=== PATIENT | male | born 1965 | race Caucasian/White ===

== ENCOUNTER 2016-08-04 23:06 | Inpatient (IN) | payer MEDICAID ==
[~2016-08-04] VITALS: Ht 180.3 cm; Wt 90.0 kg
[2016-08-05 00:02] LABS: DEFINITIVE VIEW TRANSMISSION; Hematocrit 38.4 % (41.0-53.0); Hemoglobin 13.3 g/dL (13.5-17.5); Mean Corpuscular Hemoglobin 31.4 pg (28.0-32.0); Mean Corpuscular Hgb Conc. 34.6 g/dL (32.0-36.0); Mean Corpuscular Volume 90.8 fL (80.0-100.0); Platelet Count (auto) 428 10^3/uL (140-450); Red Cell Distribution Width 13.2 % (11.6-16.0); SUSPECT VIEW TRANSMISSION
[2016-08-05 00:18] LABS: White Blood Cell 33.4 10^3/uL (4.4-10.8)
[2016-08-05 00:19] LABS: Metamyelocytes % 0; Myelocytes % 0; Promyelocytes % 0; Reactive Lymphocytes 0
[2016-08-05 00:21] LABS: Albumin 1.9 g/dL (3.4-5.0); BUN/Creatinine Ratio 15.4; Calcium 8.2 mg/dL (8.5-10.1)
[2016-08-05 00:24] LABS: Bilirubin, Total 1.6 mg/dL (0.2-1.0); Total Protein 6.9 g/dL (6.4-8.2)
[2016-08-05 00:38] LABS: Potassium 2.7 mmol/L (3.5-5.1)
[2016-08-05] MEDS ORDERED: POTASSIUM CHL 20 Meq TABLET PO ONE (00:45)
[2016-08-05 01:11] LABS: Platelet Estimate Adequate; RBC Morphology Normal
[2016-08-05] MEDS ORDERED: KETOROLAC TROMETH 30 MG/ML 1ML VIAL IV ONE (01:15)
[2016-08-05] MEDS ORDERED: CLINDAMYCIN 900MG IV 50 ML IV ONE (01:15)
[2016-08-05 01:18] LABS: Lactic Acid w/Reflex 3.2 mmol/L (0.4-2.0)
[2016-08-05 01:20] LABS: REFLEX LACTIC ACID YES OR NO YES
[2016-08-05 02:37] LABS: Lactic Acid w/Reflex 2.6 mmol/L (0.4-2.0)
[2016-08-05] MEDS ORDERED: SODIUM CHLORIDE 0.9% 1,000 ML IV ONE ×2 (03:00→14:15)
[2016-08-05] MEDS ORDERED: VANCOMYCIN 1GM/250ML D5W 250 ML IV ONE (03:00)
[2016-08-05 03:04] LABS: REFLEX LACTIC ACID YES OR NO YES
[2016-08-05] MEDS ORDERED: MORPHINE SULF INJ 2 MG/ML SYRINGE 1ML IV PRN (04:15)
[2016-08-05] MEDS ORDERED: ONDANSETRON HCL 4 MG/2 ML VIAL IV PRN (04:15)
[2016-08-05] MEDS: SODIUM CHLORIDE 0.9% 1,000 ML IV SCH ×3 (04:30→15:00)
[2016-08-05 04:46] LABS: Lactic Acid w/Reflex 2.4 mmol/L (0.4-2.0)
[2016-08-05 05:21] LABS: REFLEX LACTIC ACID YES OR NO YES
[2016-08-05 05:44] VITALS: BP 117/64
[2016-08-05 08:00] VITALS: BP 109/62
[2016-08-05 08:57] VITALS: BP 109/62
[2016-08-05] MEDS ORDERED: CLINDAMYCIN 900MG IV 50 ML IV SCH (10:00)
[2016-08-05 12:30] VITALS: BP 105/63
[2016-08-05] MEDS: CLINDAMYCIN 900MG IV 50 ML IV SCH ×2 (13:20→22:15)
[2016-08-05 14:32] LABS: Hematocrit 34.6 % (41.0-53.0); Hemoglobin 11.8 g/dL (13.5-17.5); Mean Corpuscular Hemoglobin 30.9 pg (28.0-32.0); Mean Corpuscular Hgb Conc. 34.1 g/dL (32.0-36.0); Mean Corpuscular Volume 90.8 fL (80.0-100.0); Mean Platelet Volume 6.7 fL (7.4-10.4); Platelet Count (auto) 393 10^3/uL (140-450); Red Cell Distribution Width 13.5 % (11.6-16.0); SUSPECT VIEW TRANSMISSION; White Blood Cell 25.9 10^3/uL (4.4-10.8)
[2016-08-05 14:38] LABS: Metamyelocytes % 0; Myelocytes % 0; Promyelocytes % 0; Reactive Lymphocytes 0
[2016-08-05 14:50] LABS: Partial Thromboplastin Time 30.7 sec (22.64-33.71)
[2016-08-05 14:54] LABS: BUN/Creatinine Ratio 14.6; Calcium 7.9 mg/dL (8.5-10.1); Magnesium 1.9 mg/dL (1.6-2.6); Potassium 3.1 mmol/L (3.5-5.1)
[2016-08-05 15:14] LABS: INR 1.28 (0.9-1.15); Prothrombin Time 13.2 sec (9.37-12.3)
[2016-08-05 15:31] LABS: Platelet Estimate Adequate
[2016-08-05] MEDS: PANTOPRAZOLE 40 MG TAB PO SCH (15:53)
[2016-08-05 17:05] VITALS: BP 131/73
[2016-08-05 22:00] VITALS: BP 136/91
[2016-08-06] MEDS ORDERED: NEOMYCIN-BACITRACIN-POLYM UNITDOSE PKG TOP OINT TOP ONE (02:29)
[2016-08-06 05:00] VITALS: BP 137/83
[2016-08-06 06:00] LABS: Hematocrit 35.5 % (41.0-53.0); Hemoglobin 12.1 g/dL (13.5-17.5); Mean Corpuscular Hemoglobin 30.8 pg (28.0-32.0); Mean Corpuscular Hgb Conc. 34.1 g/dL (32.0-36.0); Mean Corpuscular Volume 90.3 fL (80.0-100.0); Mean Platelet Volume 6.9 fL (7.4-10.4); Platelet Count (auto) 422 10^3/uL (140-450); Red Cell Distribution Width 13.6 % (11.6-16.0); SUSPECT VIEW TRANSMISSION
[2016-08-06] MEDS: CLINDAMYCIN 900MG IV 50 ML IV SCH ×2 (06:04→13:57)
[2016-08-06 06:10] LABS: Metamyelocytes % 0; Myelocytes % 0; Promyelocytes % 0; Reactive Lymphocytes 0
[2016-08-06 06:45] LABS: BUN/Creatinine Ratio 15.5; Magnesium 2.2 mg/dL (1.6-2.6); Potassium 3.2 mmol/L (3.5-5.1)
[2016-08-06 06:58] LABS: Platelet Estimate Adequate; RBC Morphology Normal
[2016-08-06] MEDS: SODIUM CHLORIDE 0.9% 1,000 ML IV SCH ×2 (07:40→14:45)
[2016-08-06 09:00] VITALS: BP 122/73
[2016-08-06] MEDS: PANTOPRAZOLE 40 MG TAB PO SCH (10:26)
[2016-08-06] MEDS: HYDROcodone-ACET 5/325MG TAB PO PRN ×2 (10:33→17:49)
[2016-08-06] MEDS ORDERED: SODIUM CHLORIDE 0.9% 1,000 ML IV ONE (13:45)
[2016-08-06] MEDS ORDERED: VANCOMYCIN 1GM/250ML D5W 250 ML IV ONE (14:15)
[2016-08-06] MEDS ORDERED: VANCOMYCIN PER PHARMACY 0 MG IV SCH (14:15)
[2016-08-06] MEDS ORDERED: POTASSIUM CHL 20 Meq TABLET PO ONE (14:15)
[2016-08-06] MEDS ORDERED: PHYTONADIONE ORAL Susp 10 mg/10ml PO ONE (14:15)
[2016-08-06] MEDS ORDERED: PIPERACILLIN-TAZOB 3.375GM 100 ML IV ONE (15:15)
[2016-08-06 16:31] LABS: Partial Thromboplastin Time 30.1 sec (22.64-33.71)
[2016-08-06 16:56] VITALS: BP 117/79
[2016-08-06 17:02] LABS: INR 1.23 (0.9-1.15); Prothrombin Time 12.7 sec (9.37-12.3)
[2016-08-06] MEDS: PIPERACILLIN-TAZOB 3.375GM 100 ML IV SCH (17:49)
[2016-08-06] MEDS ORDERED: NEOMYCIN-BACITRACIN-POLYM 15GM TOP OINT TOP ONE (20:24)
[2016-08-06] MEDS ORDERED: BUPIVACAINE W/ EPINEPH 0.25% INJ 50ML MDV ONE (20:24)
[2016-08-06] MEDS ORDERED: BUPIVACAINE 0.25% INJ 50ML VIAL ONE (20:24)
[2016-08-06] MEDS ORDERED: ceFAZolin 1GM/50ML D5W 50 ML IV ONE (20:29)
[2016-08-06] MEDS ORDERED: KETOROLAC TROMETH 30 MG/ML 1ML VIAL IV ONE (20:30)
[2016-08-06] MEDS ORDERED: ONDANSETRON HCL 4 MG/2 ML VIAL IV ONE (20:30)
[2016-08-06] MEDS ORDERED: ePHEDrine SULFATE 50 MG/ML AMP IV PRN (20:30)
[2016-08-06] MEDS ORDERED: MIDAZOLAM HCL 1MG/1ML-2 ML VIAL IV PRN (20:30)
[2016-08-06] MEDS ORDERED: MORPHINE SULF INJ 2 MG/ML SYRINGE 1ML IV PRN (20:30)
[2016-08-06] MEDS ORDERED: hydrALAZINE HCL 20 MG/ML VL IV PRN (20:30)
[2016-08-06] MEDS ORDERED: LABETALOL HCL 5 MG/ML 4ML SYRINGE IV PRN (20:30)
[2016-08-06] MEDS ORDERED: HYDROmorphone HCL 2 MG/ML VL IV PRN (20:30)
[2016-08-06] MEDS ORDERED: MEPERIDINE HCL (50 MG/ML) 1 ML VIAL ONE (20:31)
[2016-08-06] MEDS ORDERED: MIDAZOLAM HCL 1MG/1ML-2 ML VIAL ONE (20:31)
[2016-08-06] MEDS ORDERED: fentaNYL CITRATE 100 MCG/2 ML VL ONE (20:31)
[2016-08-06] MEDS ORDERED: PROPOFOL 10 MG/ML 20 ML IV ONE (20:47)
[2016-08-06] MEDS ORDERED: DEXAMETHASONE SOD PHOS 10MG/1ML VIAL INJ ONE (20:47)
[2016-08-06 22:00] VITALS: BP 127/81
[2016-08-07] MEDS: PIPERACILLIN-TAZOB 3.375GM 100 ML IV SCH ×4 (00:11→18:16)
[2016-08-07] MEDS: SODIUM CHLORIDE 0.9% 1,000 ML IV SCH ×3 (00:11→20:43)
[2016-08-07] MEDS: HYDROmorphone HCL 2 MG/ML VL IV PRN ×3 (01:13→16:33)
[2016-08-07] MEDS: VANCOMYCIN 1,250 MG in D5W 5% 250 ML IV SCH ×2 (02:24→14:29)
[2016-08-07 05:36] VITALS: BP 112/76
[2016-08-07 06:26] LABS: Hematocrit 31.9 % (41.0-53.0); Hemoglobin 10.9 g/dL (13.5-17.5); Mean Corpuscular Hemoglobin 30.7 pg (28.0-32.0); Mean Corpuscular Hgb Conc. 34.3 g/dL (32.0-36.0); Mean Corpuscular Volume 89.5 fL (80.0-100.0); Mean Platelet Volume 6.9 fL (7.4-10.4); Platelet Count (auto) 399 10^3/uL (140-450); Red Cell Distribution Width 13.6 % (11.6-16.0); SUSPECT VIEW TRANSMISSION; White Blood Cell 22.9 10^3/uL (4.4-10.8)
[2016-08-07 06:32] LABS: Metamyelocytes % 0; Myelocytes % 0; Promyelocytes % 0; Reactive Lymphocytes 0
[2016-08-07 06:41] LABS: Partial Thromboplastin Time 30.1 sec (22.64-33.71); Prothrombin Time 11.9 sec (9.37-12.3)
[2016-08-07 06:48] LABS: BUN/Creatinine Ratio 16.3; Calcium 7.4 mg/dL (8.5-10.1); Magnesium 2.4 mg/dL (1.6-2.6); Potassium 3.9 mmol/L (3.5-5.1)
[2016-08-07 06:52] LABS: INR 1.16 (0.9-1.15)
[2016-08-07 06:57] LABS: Hypersegmented Neutrophils Present
[2016-08-07 06:58] LABS: Platelet Estimate Adequate; RBC Morphology Normal
[2016-08-07 09:00] VITALS: BP 120/74
[2016-08-07] MEDS: HYDROcodone-ACET 5/325MG TAB PO PRN ×3 (09:08→21:02)
[2016-08-07] MEDS: PANTOPRAZOLE 40 MG TAB PO SCH (10:05)
[2016-08-07 13:27] VITALS: BP 123/85
[2016-08-07 17:00] VITALS: BP 145/86
[2016-08-07 22:31] VITALS: BP 147/86
[2016-08-08] MEDS: PIPERACILLIN-TAZOB 3.375GM 100 ML IV SCH ×5 (00:09→23:49)
[2016-08-08] MEDS: HYDROmorphone HCL 2 MG/ML VL IV PRN ×5 (01:07→23:49)
[2016-08-08] MEDS: VANCOMYCIN 1,250 MG in D5W 5% 250 ML IV SCH ×2 (01:42→14:13)
[2016-08-08] MEDS: HYDROcodone-ACET 5/325MG TAB PO PRN ×4 (04:14→20:38)
[2016-08-08 05:17] VITALS: BP 160/94
[2016-08-08] MEDS: SODIUM CHLORIDE 0.9% 1,000 ML IV SCH ×2 (06:11→16:45)
[2016-08-08 08:10] LABS: Calcium 7.3 mg/dL (8.5-10.1); Potassium 3.1 mmol/L (3.5-5.1)
[2016-08-08 08:14] LABS: Hematocrit 27.9 % (41.0-53.0); Hemoglobin 9.6 g/dL (13.5-17.5); Mean Corpuscular Hemoglobin 30.8 pg (28.0-32.0); Mean Corpuscular Hgb Conc. 34.4 g/dL (32.0-36.0); Mean Corpuscular Volume 89.6 fL (80.0-100.0); Mean Platelet Volume 7.2 fL (7.4-10.4); Platelet Count (auto) 432 10^3/uL (140-450); Red Cell Distribution Width 13.6 % (11.6-16.0); SUSPECT VIEW TRANSMISSION
[2016-08-08 08:41] LABS: Metamyelocytes % 0; Myelocytes % 0; Promyelocytes % 0; Reactive Lymphocytes 0
[2016-08-08 09:00] VITALS: BP 154/96
[2016-08-08 09:14] LABS: Platelet Estimate Adequate
[2016-08-08] MEDS: PANTOPRAZOLE 40 MG TAB PO SCH (10:55)
[2016-08-08 13:00] VITALS: BP 157/98
[2016-08-08] MEDS: POTASSIUM CHL 20 Meq TABLET PO SCH ×2 (14:14→18:18)
[2016-08-08] MEDS ORDERED: NICOTINE 14 MG/24HR TOPICAL PATCH TD ONE (16:45)
[2016-08-08 17:00] VITALS: BP 154/95
[2016-08-08 21:55] VITALS: BP 150/97
[2016-08-09] VITALS (7 sets, daily range): BP systolic 122–153; BP diastolic 68–93
[2016-08-09] MEDS: VANCOMYCIN 1,250 MG in D5W 5% 250 ML IV SCH ×2 (02:00→16:42)
[2016-08-09] MEDS: HYDROcodone-ACET 5/325MG TAB PO PRN ×2 (02:40→09:19)
[2016-08-09] MEDS: SODIUM CHLORIDE 0.9% 1,000 ML IV SCH ×3 (02:41→22:45)
[2016-08-09] MEDS: HYDROmorphone HCL 2 MG/ML VL IV PRN ×6 (05:32→23:40)
[2016-08-09] MEDS: PIPERACILLIN-TAZOB 3.375GM 100 ML IV SCH ×3 (05:32→23:42)
[2016-08-09 07:34] LABS: Hematocrit 30.9 % (41.0-53.0); Hemoglobin 10.7 g/dL (13.5-17.5); Mean Corpuscular Hemoglobin 30.9 pg (28.0-32.0); Mean Corpuscular Hgb Conc. 34.6 g/dL (32.0-36.0); Mean Corpuscular Volume 89.2 fL (80.0-100.0); Mean Platelet Volume 6.8 fL (7.4-10.4); Platelet Count (auto) 523 10^3/uL (140-450); Red Cell Distribution Width 13.7 % (11.6-16.0); SUSPECT VIEW TRANSMISSION; White Blood Cell 22.6 10^3/uL (4.4-10.8)
[2016-08-09 07:41] LABS: Promyelocytes % 0; Reactive Lymphocytes 0
[2016-08-09 07:52] LABS: BUN/Creatinine Ratio 16.5; Calcium 7.6 mg/dL (8.5-10.1); Potassium 4.3 mmol/L (3.5-5.1)
[2016-08-09 08:12] LABS: Metamyelocytes % 3; Myelocytes % 1
[2016-08-09 08:14] LABS: Platelet Estimate Increased
[2016-08-09] MEDS: NICOTINE 14 MG/24HR TOPICAL PATCH TD SCH (10:49)
[2016-08-09] MEDS: PANTOPRAZOLE 40 MG TAB PO SCH (10:49)
[2016-08-09] MEDS ORDERED: ceFAZolin 1GM/50ML D5W 50 ML IV ONE (12:53)
[2016-08-09] MEDS ORDERED: ceFAZolin 1GM VL ONE ×2 (12:54→13:08)
[2016-08-09] MEDS ORDERED: fentaNYL CITRATE 100 MCG/2 ML VL ONE (13:11)
[2016-08-09] MEDS ORDERED: PROPOFOL 10 MG/ML 20 ML IV ONE (13:11)
[2016-08-09] MEDS ORDERED: DEXAMETHASONE SOD PHOS 10MG/1ML VIAL INJ ONE (13:11)
[2016-08-09] MEDS ORDERED: GLYCOPYRROLATE 0.2 MG/ML 1ML VIAL ONE (13:11)
[2016-08-09] MEDS ORDERED: ONDANSETRON HCL 4 MG/2 ML VIAL ONE (13:11)
[2016-08-09] MEDS ORDERED: KETOROLAC TROMETH 60MG/2ML VIAL IM ONE (13:11)
[2016-08-09] MEDS ORDERED: MIDAZOLAM HCL 1MG/1ML-2 ML VIAL ONE (13:17)
[2016-08-09] MEDS ORDERED: NEOMYCIN-BACITRACIN-POLYM 15GM TOP OINT TOP ONE ×3 (13:51→14:20)
[2016-08-09] MEDS ORDERED: ONDANSETRON HCL 4 MG/2 ML VIAL IV ONE (14:45)
[2016-08-09] MEDS ORDERED: ceFOXitin 2GM/100ML D5W 100 ML IV ONE (16:13)
[2016-08-09] MEDS ORDERED: ceFAZolin 1GM/50ML D5W 50 ML IV SCH (18:00)
[2016-08-09] MEDS: ceFAZolin 1GM/50ML D5W 50 ML IV SCH (19:28)
[2016-08-10] MEDS: ceFAZolin 1GM/50ML D5W 50 ML IV SCH (02:50)
[2016-08-10] MEDS: VANCOMYCIN 1,250 MG in D5W 5% 250 ML IV SCH (02:50)
[2016-08-10 05:30] VITALS: BP 112/69
[2016-08-10] MEDS: HYDROmorphone HCL 2 MG/ML VL IV PRN ×4 (06:02→21:57)
[2016-08-10] MEDS: PIPERACILLIN-TAZOB 3.375GM 100 ML IV SCH ×4 (06:02→23:51)
[2016-08-10 08:20] VITALS: BP 115/71
[2016-08-10 08:44] LABS: DEFINITIVE VIEW TRANSMISSION; Hematocrit 22.1 % (41.0-53.0); Hemoglobin 7.8 g/dL (13.5-17.5); Mean Corpuscular Hgb Conc. 35.2 g/dL (32.0-36.0); Mean Corpuscular Volume 90.9 fL (80.0-100.0); Mean Platelet Volume 6.7 fL (7.4-10.4); Platelet Count (auto) 499 10^3/uL (140-450); Red Cell Distribution Width 13.9 % (11.6-16.0); SUSPECT VIEW TRANSMISSION
[2016-08-10 08:50] LABS: BUN/Creatinine Ratio 20.6; Calcium 7.4 mg/dL (8.5-10.1); Magnesium 2.7 mg/dL (1.6-2.6); Potassium 4.2 mmol/L (3.5-5.1)
[2016-08-10 09:00] LABS: White Blood Cell 39.8 10^3/uL (4.4-10.8)
[2016-08-10 09:02] LABS: Metamyelocytes % 0; Myelocytes % 0; Promyelocytes % 0; Reactive Lymphocytes 0
[2016-08-10] MEDS: PANTOPRAZOLE 40 MG TAB PO SCH (09:15)
[2016-08-10] MEDS: NICOTINE 14 MG/24HR TOPICAL PATCH TD SCH (09:16)
[2016-08-10 09:19] LABS: Large Platelets FEW; Platelet Estimate Increa; RBC Morphology Normal
[2016-08-10] MEDS: HYDROcodone-ACET 5/325MG TAB PO PRN ×3 (09:22→23:52)
[2016-08-10] MEDS: LINEZOLID 600MG/300ML 300 ML IV SCH ×2 (10:41→22:00)
[2016-08-10 12:02] VITALS: BP 113/62
[2016-08-10] MEDS: FLUCONAZOLE 200MG/100ML 100 ML IV SCH (12:52)
[2016-08-10] MEDS ORDERED: IOHEXOL 300 MG/ML 100ML BOTTLE IJ ONE (16:41)
[2016-08-10 16:51] VITALS: BP 113/59
[2016-08-10] MEDS: SODIUM CHLORIDE 0.9% 1,000 ML IV SCH ×2 (18:45→23:52)
[2016-08-10 20:00] VITALS: BP 127/70
[2016-08-10 22:00] VITALS: BP 127/70
[2016-08-11] VITALS (16 sets, daily range): BP systolic 122–160; BP diastolic 69–95
[2016-08-11] MEDS: HYDROmorphone HCL 2 MG/ML VL IV PRN ×5 (04:19→20:23)
[2016-08-11] MEDS: PIPERACILLIN-TAZOB 3.375GM 100 ML IV SCH ×3 (05:41→18:12)
[2016-08-11 05:48] LABS: Basophils # (auto) 0.1 uL; Basophils % (auto) 0.4 % (0.0-2.0); DEFINITIVE VIEW TRANSMISSION; Eosinophils # (auto) 0.3 uL; Eosinophils % (auto) 1.6 % (0.0-7.0); Hematocrit 18.8 % (41.0-53.0); Lymphocytes # (auto) 3.4 uL; Lymphocytes % (auto) 17.1 % (10.0-50.0); Mean Corpuscular Hemoglobin 31.2 pg (28.0-32.0); Mean Corpuscular Hgb Conc. 33.9 g/dL (32.0-36.0); Mean Corpuscular Volume 92.2 fL (80.0-100.0); Mean Platelet Volume 6.7 fL (7.4-10.4); Monocytes # (auto) 0.7 uL; Monocytes % (auto) 3.7 % (0.0-12.0); Neutrophils # (auto) 15.4 uL; Neutrophils % (auto) 77.2 % (37.0-80.0); Platelet Count (auto) 480 10^3/uL (140-450)
[2016-08-11 06:05] LABS: Calcium 7.5 mg/dL (8.5-10.1); Potassium 4.5 mmol/L (3.5-5.1)
[2016-08-11 06:06] LABS: BUN/Creatinine Ratio 21.8
[2016-08-11 06:25] LABS: Hemoglobin 6.4 g/dL (13.5-17.5)
[2016-08-11] MEDS: PANTOPRAZOLE 40 MG TAB PO SCH (10:28)
[2016-08-11] MEDS: LINEZOLID 600MG/300ML 300 ML IV SCH (10:29)
[2016-08-11] MEDS: NICOTINE 14 MG/24HR TOPICAL PATCH TD SCH (10:29)
[2016-08-11] MEDS: HYDROcodone-ACET 5/325MG TAB PO PRN (10:41)
[2016-08-11] MEDS: FLUCONAZOLE 200MG/100ML 100 ML IV SCH (15:07)
[2016-08-11 16:11] LABS: Hematocrit 22.4 % (41.0-53.0); Hemoglobin 7.6 g/dL (13.5-17.5)
[2016-08-11] MEDS: SODIUM CHLORIDE 0.9% 1,000 ML IV SCH ×2 (20:24→20:26)
[2016-08-11] MEDS: LINEZOLID 600MG TABLET PO SCH (21:44)
[2016-08-11 21:54] LABS: Hematocrit 26.1 % (41.0-53.0); Hemoglobin 8.9 g/dL (13.5-17.5)
[2016-08-12] VITALS (7 sets, daily range): BP systolic 130–149; BP diastolic 60–93
[2016-08-12] MEDS: PIPERACILLIN-TAZOB 3.375GM 100 ML IV SCH ×5 (00:40→23:30)
[2016-08-12] MEDS: HYDROmorphone HCL 2 MG/ML VL IV PRN ×6 (00:41→22:59)
[2016-08-12 07:01] LABS: Potassium 4.2 mmol/L (3.5-5.1)
[2016-08-12 07:10] LABS: Hematocrit 27.2 % (41.0-53.0); Hemoglobin 9.3 g/dL (13.5-17.5); Mean Corpuscular Hemoglobin 31.3 pg (28.0-32.0); Mean Corpuscular Hgb Conc. 34.2 g/dL (32.0-36.0); Mean Corpuscular Volume 91.6 fL (80.0-100.0); Mean Platelet Volume 6.9 fL (7.4-10.4); Platelet Count (auto) 627 10^3/uL (140-450); Red Cell Distribution Width 14.5 % (11.6-16.0); SUSPECT VIEW TRANSMISSION; White Blood Cell 19.2 10^3/uL (4.4-10.8)
[2016-08-12 07:14] LABS: Metamyelocytes % 0; Myelocytes % 0; Promyelocytes % 0; Reactive Lymphocytes 0
[2016-08-12 07:54] LABS: Platelet Estimate Increased; RBC Morphology Normal
[2016-08-12] MEDS: PANTOPRAZOLE 40 MG TAB PO SCH (10:02)
[2016-08-12] MEDS: LINEZOLID 600MG TABLET PO SCH ×2 (10:02→22:47)
[2016-08-12] MEDS: NICOTINE 14 MG/24HR TOPICAL PATCH TD SCH (10:12)
[2016-08-12] MEDS: SODIUM CHLORIDE 0.9% 1,000 ML IV SCH ×2 (10:45→21:03)
[2016-08-12] MEDS: HYDROcodone-ACET 5/325MG TAB PO PRN ×3 (12:00→21:05)
[2016-08-12] MEDS: FLUCONAZOLE 200MG/100ML 100 ML IV SCH (14:34)
[2016-08-13] MEDS: HYDROmorphone HCL 2 MG/ML VL IV PRN ×8 (03:06→22:40)
[2016-08-13 05:00] VITALS: BP 154/95
[2016-08-13] MEDS: PIPERACILLIN-TAZOB 3.375GM 100 ML IV SCH ×3 (05:56→18:20)
[2016-08-13 06:07] LABS: Hematocrit 27.6 % (41.0-53.0); Hemoglobin 9.2 g/dL (13.5-17.5); Mean Corpuscular Hemoglobin 30.6 pg (28.0-32.0); Mean Corpuscular Hgb Conc. 33.3 g/dL (32.0-36.0); Mean Corpuscular Volume 91.9 fL (80.0-100.0); Mean Platelet Volume 6.5 fL (7.4-10.4); Platelet Count (auto) 677 10^3/uL (140-450); Red Cell Distribution Width 14.1 % (11.6-16.0); SUSPECT VIEW TRANSMISSION; White Blood Cell 18.8 10^3/uL (4.4-10.8)
[2016-08-13 06:09] LABS: Metamyelocytes % 0; Myelocytes % 0; Promyelocytes % 0; Reactive Lymphocytes 0
[2016-08-13 06:10] LABS: INR 1.08 (0.9-1.15); Partial Thromboplastin Time 30.3 sec (22.64-33.71); Prothrombin Time 11.1 sec (9.37-12.3)
[2016-08-13] MEDS: SODIUM CHLORIDE 0.9% 1,000 ML IV SCH (06:13)
[2016-08-13] MEDS ORDERED: BUPIVACAINE 0.25% INJ 50ML VIAL ONE (06:32)
[2016-08-13] MEDS ORDERED: BUPIVACAINE W/ EPINEPH 0.25% INJ 50ML MDV ONE (06:32)
[2016-08-13] MEDS ORDERED: ceFAZolin 1GM VL ONE (06:43)
[2016-08-13] MEDS ORDERED: NEOMYCIN-BACITRACIN-POLYM 15GM TOP OINT TOP ONE (06:49)
[2016-08-13] MEDS ORDERED: ceFAZolin 1GM/50ML D5W 0 ML IV ONE (07:13)
[2016-08-13] MEDS ORDERED: MIDAZOLAM HCL 1MG/1ML-2 ML VIAL ONE (07:20)
[2016-08-13] MEDS ORDERED: fentaNYL CITRATE 100 MCG/2 ML VL ONE ×2 (07:20→07:35)
[2016-08-13] MEDS ORDERED: ROCURONIUM 10MG/ML 10ML VIAL IV ONE (07:20)
[2016-08-13] MEDS ORDERED: PROPOFOL 10 MG/ML 20 ML IV ONE (07:21)
[2016-08-13 07:29] LABS: Calcium 8.1 mg/dL (8.5-10.1); Potassium 4.9 mmol/L (3.5-5.1)
[2016-08-13 08:23] LABS: Platelet Estimate Increased; RBC Morphology Normal
[2016-08-13] MEDS ORDERED: ONDANSETRON HCL 4 MG/2 ML VIAL IV ONE (08:45)
[2016-08-13] MEDS ORDERED: hydrALAZINE HCL 20 MG/ML VL IV PRN (08:45)
[2016-08-13] MEDS ORDERED: ePHEDrine SULFATE 50 MG/ML AMP IV PRN (08:45)
[2016-08-13] MEDS: NICOTINE 14 MG/24HR TOPICAL PATCH TD SCH (10:18)
[2016-08-13] MEDS: PANTOPRAZOLE 40 MG TAB PO SCH (10:18)
[2016-08-13] MEDS: LINEZOLID 600MG TABLET PO SCH ×2 (10:31→22:39)
[2016-08-13 12:38] VITALS: BP 137/95
[2016-08-13] MEDS: HYDROcodone-ACET 5/325MG TAB PO PRN ×2 (12:58→20:08)
[2016-08-13] MEDS: FLUCONAZOLE 200MG/100ML 100 ML IV SCH (13:14)
[2016-08-13 15:59] VITALS: BP 130/89
[2016-08-13 20:00] VITALS: BP 139/81
[2016-08-13 22:00] VITALS: BP 139/81
[2016-08-14] MEDS: PIPERACILLIN-TAZOB 3.375GM 100 ML IV SCH ×5 (00:49→23:49)
[2016-08-14] MEDS: HYDROcodone-ACET 5/325MG TAB PO PRN ×4 (00:59→23:24)
[2016-08-14] MEDS: HYDROmorphone HCL 2 MG/ML VL IV PRN ×4 (03:34→20:31)
[2016-08-14] MEDS: SODIUM CHLORIDE 0.9% 1,000 ML IV SCH ×3 (03:35→23:24)
[2016-08-14 05:30] VITALS: BP 129/88
[2016-08-14 07:20] LABS: BUN/Creatinine Ratio 12.3; Calcium 8.1 mg/dL (8.5-10.1); Potassium 4.3 mmol/L (3.5-5.1)
[2016-08-14 07:40] LABS: Basophils # (auto) 0.1 uL; Basophils % (auto) 0.3 % (0.0-2.0); DEFINITIVE VIEW TRANSMISSION; Eosinophils # (auto) 0.2 uL; Eosinophils % (auto) 1.3 % (0.0-7.0); Hematocrit 26.7 % (41.0-53.0); Hemoglobin 9.1 g/dL (13.5-17.5); Lymphocytes # (auto) 2.3 uL; Lymphocytes % (auto) 14.5 % (10.0-50.0); Mean Corpuscular Hemoglobin 31.4 pg (28.0-32.0); Mean Corpuscular Hgb Conc. 34.2 g/dL (32.0-36.0); Mean Corpuscular Volume 91.8 fL (80.0-100.0); Mean Platelet Volume 6.4 fL (7.4-10.4); Monocytes # (auto) 0.7 uL; Monocytes % (auto) 4.5 % (0.0-12.0); Neutrophils # (auto) 12.8 uL; Neutrophils % (auto) 79.4 % (37.0-80.0); Red Cell Distribution Width 14.2 % (11.6-16.0); White Blood Cell 16.1 10^3/uL (4.4-10.8)
[2016-08-14 08:03] LABS: Platelet Count (auto) 830 10^3/uL (140-450)
[2016-08-14] MEDS: NICOTINE 14 MG/24HR TOPICAL PATCH TD SCH (08:48)
[2016-08-14] MEDS: PANTOPRAZOLE 40 MG TAB PO SCH (08:49)
[2016-08-14] MEDS: LINEZOLID 600MG TABLET PO SCH ×2 (08:53→23:24)
[2016-08-14 09:00] VITALS: BP 140/93
[2016-08-14 12:05] LABS: Platelet Estimate Markedly Increased
[2016-08-14] MEDS: FLUCONAZOLE 200MG/100ML 100 ML IV SCH (12:22)
[2016-08-14 13:00] VITALS: BP 144/88
[2016-08-14 17:04] VITALS: BP 146/93
[2016-08-14 20:00] VITALS: BP 144/85
[2016-08-14 22:00] VITALS: BP 144/85
[2016-08-15] MEDS: HYDROmorphone HCL 2 MG/ML VL IV PRN ×6 (00:35→22:25)
[2016-08-15] MEDS: HYDROcodone-ACET 5/325MG TAB PO PRN ×5 (04:09→21:26)
[2016-08-15] MEDS: PIPERACILLIN-TAZOB 3.375GM 100 ML IV SCH ×4 (05:27→23:43)
[2016-08-15 05:30] VITALS: BP 144/85
[2016-08-15 06:34] LABS: Basophils # (auto) 0.1 uL; Basophils % (auto) 0.5 % (0.0-2.0); DEFINITIVE VIEW TRANSMISSION; Eosinophils # (auto) 0.3 uL; Hematocrit 25.7 % (41.0-53.0); Hemoglobin 8.6 g/dL (13.5-17.5); Lymphocytes # (auto) 2.1 uL; Lymphocytes % (auto) 15.9 % (10.0-50.0); Mean Corpuscular Hemoglobin 30.9 pg (28.0-32.0); Mean Corpuscular Hgb Conc. 33.5 g/dL (32.0-36.0); Mean Corpuscular Volume 92.3 fL (80.0-100.0); Mean Platelet Volume 6.2 fL (7.4-10.4); Monocytes # (auto) 1.1 uL; Monocytes % (auto) 8.3 % (0.0-12.0); Neutrophils # (auto) 9.5 uL; Neutrophils % (auto) 73.3 % (37.0-80.0)
[2016-08-15 07:05] LABS: BUN/Creatinine Ratio 12.4; Calcium 8.2 mg/dL (8.5-10.1); Potassium 4.5 mmol/L (3.5-5.1)
[2016-08-15 07:44] LABS: Platelet Count (auto) 894 10^3/uL (140-450)
[2016-08-15 08:00] VITALS: BP 129/88
[2016-08-15 08:43] VITALS: BP 129/88
[2016-08-15 09:00] VITALS: BP 129/88
[2016-08-15] MEDS: PANTOPRAZOLE 40 MG TAB PO SCH (09:41)
[2016-08-15] MEDS: NICOTINE 14 MG/24HR TOPICAL PATCH TD SCH (09:41)
[2016-08-15] MEDS: LINEZOLID 600MG TABLET PO SCH ×2 (09:41→21:30)
[2016-08-15] MEDS: FLUCONAZOLE 200MG/100ML 100 ML IV SCH (12:49)
[2016-08-15] MEDS: SODIUM CHLORIDE 0.9% 1,000 ML IV SCH ×2 (12:55→18:45)
[2016-08-15 14:58] LABS: Platelet Estimate Markedly Increased
[2016-08-15 17:00] VITALS: BP 151/80
[2016-08-15 21:16] VITALS: BP 121/83
[2016-08-16] MEDS: HYDROmorphone HCL 2 MG/ML VL IV PRN ×3 (02:32→10:50)
[2016-08-16] MEDS: PIPERACILLIN-TAZOB 3.375GM 100 ML IV SCH ×2 (05:36→12:00)
[2016-08-16 05:47] VITALS: BP 127/77
[2016-08-16 05:58] LABS: Basophils # (auto) 0.1 uL; Basophils % (auto) 0.5 % (0.0-2.0); DEFINITIVE VIEW TRANSMISSION; Eosinophils # (auto) 0.1 uL; Eosinophils % (auto) 1.3 % (0.0-7.0); Hematocrit 25.1 % (41.0-53.0); Hemoglobin 8.3 g/dL (13.5-17.5); Lymphocytes # (auto) 1.9 uL; Lymphocytes % (auto) 16.8 % (10.0-50.0); Mean Corpuscular Hemoglobin 30.6 pg (28.0-32.0); Mean Corpuscular Hgb Conc. 33.2 g/dL (32.0-36.0); Monocytes # (auto) 0.9 uL; Monocytes % (auto) 8.6 % (0.0-12.0); Neutrophils # (auto) 8.1 uL; Neutrophils % (auto) 72.8 % (37.0-80.0); Red Cell Distribution Width 13.8 % (11.6-16.0); White Blood Cell 11.1 10^3/uL (4.4-10.8)
[2016-08-16 06:28] LABS: Platelet Count (auto) 1026 10^3/uL (140-450)
[2016-08-16] MEDS: SODIUM CHLORIDE 0.9% 1,000 ML IV SCH ×2 (06:39→14:45)
[2016-08-16 08:01] LABS: Platelet Estimate Markedly Increased
[2016-08-16 08:57] VITALS: BP 131/79
[2016-08-16] MEDS: NICOTINE 14 MG/24HR TOPICAL PATCH TD SCH (09:43)
[2016-08-16] MEDS: HYDROcodone-ACET 5/325MG TAB PO PRN ×2 (09:43→14:31)
[2016-08-16] MEDS: PANTOPRAZOLE 40 MG TAB PO SCH (09:43)
[2016-08-16] MEDS: LINEZOLID 600MG TABLET PO SCH (09:44)
[2016-08-16] MEDS: FLUCONAZOLE 200MG/100ML 100 ML IV SCH (12:00)
[2016-08-16 12:43] VITALS: BP 135/84
[2016-08-16 16:19] VITALS: BP 132/86
[2016-08-16] MEDS ORDERED: PRO-STAT 64 30ML PO SCH (18:00)
== END 2016-08-16 17:00 | disposition home or self-care (01) | DRG 720 ==
LOC: ER 23:06 → CENTRAL 23:07
PROVIDERS: ADMIT Emergency Medicine; ATTEND Family Medicine
PROC: 0JBM0ZZ Excision of Left Upper Leg Subcutaneous Tissue and Fascia, Open Approach (ICD-10-PCS; 2016-08-06)
PROC: 0JBN0ZZ Excision of Right Lower Leg Subcutaneous Tissue and Fascia, Open Approach (ICD-10-PCS; 2016-08-06)
PROC: 0S9C3ZZ Drainage of Right Knee Joint, Percutaneous Approach (ICD-10-PCS; principal; 2016-08-06 20:38)
PROC: 30233N1 Transfusion of Nonautologous Red Blood Cells into Peripheral Vein, Percutaneous Approach (ICD-10-PCS; 2016-08-11)
DX: A41.9 Sepsis, unspecified organism (principal); M72.6 Necrotizing fasciitis; E43 Unspecified severe protein-calorie malnutrition; N17.9 Acute kidney failure, unspecified; T79.A0XA Compartment syndrome, unspecified, initial encounter; M00.9 Pyogenic arthritis, unspecified; L03.115 Cellulitis of right lower limb; E87.6 Hypokalemia; K21.9 Gastro-esophageal reflux disease without esophagitis; M72.9 Fibroblastic disorder, unspecified; M60.9 Myositis, unspecified; E66.9 Obesity, unspecified; Z68.27 Body mass index [BMI] 27.0-27.9, adult
CPT/HCPCS: 36415; 73700; 73718; 74177; 80048; 80053; 80202; 83605; 83735; 85007; 85014; 85018; 85025; 85027; 85610; 85730; 86141; 86850; 86900; 86901; 86920; 87040; 87070; 87075; 87077; 87186; 87205; 93005; 93306; 93971; 96365; 96366; 96367; 96375; 97001; J0690; J0694; J1100; J1450; J1885; J2250; J2405; J2543; J2704; J3490; J7060

== ENCOUNTER 2016-08-21 04:04 | Inpatient (IN) | payer MEDICAID ==
[~2016-08-21] VITALS: Ht 180.3 cm; Wt 88.5 kg
[2016-08-21 05:33] LABS: Basophils # (auto) 0.1 uL; DEFINITIVE VIEW TRANSMISSION; Eosinophils # (auto) 0.1 uL; Eosinophils % (auto) 1.4 % (0.0-7.0); Hematocrit 24.8 % (41.0-53.0); Hemoglobin 8.4 g/dL (13.5-17.5); Lymphocytes # (auto) 1.8 uL; Lymphocytes % (auto) 18.6 % (10.0-50.0); Mean Corpuscular Hemoglobin 31.1 pg (28.0-32.0); Mean Corpuscular Hgb Conc. 33.7 g/dL (32.0-36.0); Mean Corpuscular Volume 92.3 fL (80.0-100.0); Mean Platelet Volume 5.9 fL (7.4-10.4); Monocytes # (auto) 0.5 uL; Monocytes % (auto) 5.3 % (0.0-12.0); Neutrophils # (auto) 7.2 uL; Neutrophils % (auto) 73.7 % (37.0-80.0); White Blood Cell 9.8 10^3/uL (4.4-10.8)
[2016-08-21 05:41] LABS: Albumin 2.3 g/dL (3.4-5.0); BUN/Creatinine Ratio 15.1; Calcium 8.7 mg/dL (8.5-10.1); Potassium 4.1 mmol/L (3.5-5.1)
[2016-08-21 05:44] LABS: Bilirubin, Total 0.2 mg/dL (0.2-1.0); INR 1.04 (0.9-1.15); Partial Thromboplastin Time 30.5 sec (22.64-33.71); Prothrombin Time 11.2 sec (9.37-12.3); Total Protein 8.6 g/dL (6.4-8.2)
[2016-08-21 05:54] LABS: Platelet Count (auto) 916 10^3/uL (140-450)
[2016-08-21] MEDS ORDERED: SODIUM CHLORIDE 0.9% 1,000 ML IV ONE (06:15)
[2016-08-21] MEDS ORDERED: HYDROmorphone HCL 2 MG/ML VL IV ONE (06:15)
[2016-08-21] MEDS ORDERED: ONDANSETRON HCL 4 MG/2 ML VIAL IV ONE ×2 (06:15→08:00)
[2016-08-21 07:55] LABS: Urine Bilirubin Negative (Negative); Urine Blood Negative /uL (Negative); Urine Color Yellow (Yellow); Urine Glucose Normal (Normal); Urine Ketone Negative (Negative); Urine Mucus FEW (None Seen); Urine Nitrite Negative (Negative); Urine RBC 1 /hpf (0 - 3); Urine Squamous Epithelial Cell FEW /hpf (<5); Urine Urobilinogen Normal (Negative); Urine pH 5.5 (5.0-8.0)
[2016-08-21] MEDS ORDERED: SODIUM CHLORIDE LOCK 20 ML ONE (08:05)
[2016-08-21] MEDS ORDERED: fentaNYL CITRATE 100 MCG/2 ML VL ONE (08:05)
[2016-08-21] MEDS ORDERED: PROPOFOL 10 MG/ML 20 ML IV ONE (08:05)
[2016-08-21] MEDS ORDERED: MIDAZOLAM HCL 1MG/1ML-2 ML VIAL ONE (08:05)
[2016-08-21] MEDS ORDERED: SODIUM CHLORIDE 0.9% 1,000 ML IV SCH (10:05)
[2016-08-21] MEDS ORDERED: MORPHINE SULF INJ 2 MG/ML SYRINGE 1ML IV PRN (10:15)
[2016-08-21] MEDS ORDERED: cefTRIAXone 1GM/50ML D5W 50 ML IV ONE (10:15)
[2016-08-21] MEDS ORDERED: ONDANSETRON HCL 4 MG/2 ML VIAL IV PRN (10:15)
[2016-08-21] MEDS ORDERED: ENALAPRILAT 1.25 MG/ML-1ML VIAL IV PRN (10:30)
[2016-08-21] MEDS ORDERED: ceFAZolin 1GM VL ONE (10:39)
[2016-08-21 10:53] LABS: Basophils # (auto) 0.1 uL; Basophils % (auto) 1.1 % (0.0-2.0); DEFINITIVE VIEW TRANSMISSION; Eosinophils # (auto) 0.2 uL; Eosinophils % (auto) 2.7 % (0.0-7.0); Hematocrit 23.3 % (41.0-53.0); Hemoglobin 7.7 g/dL (13.5-17.5); Lymphocytes # (auto) 2.3 uL; Lymphocytes % (auto) 27.3 % (10.0-50.0); Mean Corpuscular Hemoglobin 30.5 pg (28.0-32.0); Mean Corpuscular Hgb Conc. 33.2 g/dL (32.0-36.0); Mean Corpuscular Volume 91.9 fL (80.0-100.0); Mean Platelet Volume 5.9 fL (7.4-10.4); Monocytes # (auto) 0.7 uL; Neutrophils # (auto) 5.1 uL; Neutrophils % (auto) 60.9 % (37.0-80.0); Red Cell Distribution Width 14.2 % (11.6-16.0); White Blood Cell 8.3 10^3/uL (4.4-10.8)
[2016-08-21] MEDS ORDERED: ceFAZolin 1GM/50ML D5W 50 ML IV ONE ×2 (10:54→10:55)
[2016-08-21] MEDS ORDERED: HYDROmorphone HCL 2 MG/ML VL ONE (11:13)
[2016-08-21 12:25] LABS: Platelet Count (auto) 857 10^3/uL (140-450)
[2016-08-21] MEDS ORDERED: HYDROmorphone HCL 2 MG/ML VL IV PRN (12:45)
[2016-08-21] MEDS ORDERED: METOCLOPRAMIDE HCL 5MG/ml INJ 2ml VIAL IV ONE (12:45)
[2016-08-21 14:30] VITALS: BP 140/82
[2016-08-21 14:41] LABS: Platelet Estimate Markedly Increased
[2016-08-21 14:42] LABS: RBC Morphology Normal
[2016-08-22] MEDS ORDERED: cefTRIAXone 1GM/50ML D5W 50 ML IV SCH (09:00)
== END 2016-08-21 14:40 | disposition home or self-care (01) | DRG 364 ==
LOC: ER 04:13 → TELE 04:14
PROVIDERS: ADMIT Internal Medicine; ATTEND Internal Medicine
PROC: 30233N1 Transfusion of Nonautologous Red Blood Cells into Peripheral Vein, Percutaneous Approach (ICD-10-PCS; 2016-08-21)
PROC: 0KQS0ZZ Repair Right Lower Leg Muscle, Open Approach (ICD-10-PCS; principal; 2016-08-21 11:05)
DX: L03.115 Cellulitis of right lower limb (principal); E43 Unspecified severe protein-calorie malnutrition; I13.10 Hypertensive heart and chronic kidney disease without heart failure, with stage 1 through stage 4 chronic kidney disease, or unspecified chronic kidney disease; I96 Gangrene, not elsewhere classified; D63.8 Anemia in other chronic diseases classified elsewhere; D47.3 Essential (hemorrhagic) thrombocythemia; R73.9 Hyperglycemia, unspecified; N18.2 Chronic kidney disease, stage 2 (mild); R94.5 Abnormal results of liver function studies; Z83.3 Family history of diabetes mellitus; Z68.27 Body mass index [BMI] 27.0-27.9, adult
CPT/HCPCS: 36415; 36430; 80053; 81001; 85025; 85610; 85730; 86850; 86900; 86901; 86920; 93005; 96361; 96365; 96375; 96376; G0434; J0690; J0696; J2250; J2405; J2704

== ENCOUNTER 2020-12-06 10:18 | Emergency (ER) | payer MEDICAID ==
[~2020-12-06] VITALS: Ht 180.3 cm; Wt 95.3 kg
[2020-12-06 10:20] VITALS: BP 198/129
[2020-12-06] MEDS ORDERED: cloNIDine HCL 0.1 MG TAB PO ONE (10:30)
[2020-12-06] MEDS ORDERED: LISINOPRIL 20 MG TAB PO ONE (12:15)
== END 2020-12-06 12:17 | disposition home or self-care (01) ==
LOC: ER 10:18
DX: I16.0 Hypertensive urgency (principal); F17.210 Nicotine dependence, cigarettes, uncomplicated

== ENCOUNTER 2022-01-10 17:08 | Emergency (ER) | payer MEDICAID ==
[~2022-01-10] VITALS: Ht 154.9 cm; Wt 89.1 kg
[2022-01-10 20:05] LABS: Basophils # (auto) 0.2 10 ^3/uL (0-0.2); Basophils % (auto) 1.4 % (0.0-2.0); Eosinophils # (auto) 1.2 10 ^3/uL (0-0.8); Hemoglobin 13.6 g/dL (13.5-17.5); Lymphocytes # (auto) 2.6 10 ^3/uL (0.4-5.4); Lymphocytes % (auto) 23.5 % (10.0-50.0); Mean Corpuscular Volume 91.2 fL (80.0-100.0); Monocytes # (auto) 0.9 10 ^3/uL (0-1.3); Monocytes % (auto) 8.4 % (0.0-12.0); Neutrophils % (auto) 55.7 % (37.0-80.0); Red Blood Cells 4.39 10^6/uL (4.5-5.90); White Blood Cell 10.9 10^3/uL (4.4-10.8)
[2022-01-10 20:22] LABS: Calcium 9.1 mg/dL (8.5-10.1)
[2022-01-10 20:39] LABS: Albumin 3.4 g/dL (3.4-5.0); BUN/Creatinine Ratio 15.2; Bilirubin, Total 0.2 mg/dL (0.2-1.0); CRP High Sensitivity 1.86 mg/dL (< 0.3); Total Protein 6.6 g/dL (6.4-8.2)
[2022-01-10 21:00] VITALS: BP 153/95
== END 2022-01-10 21:55 | disposition left against medical advice (07) ==
LOC: ER 17:08
DX: R21 Rash and other nonspecific skin eruption (principal); I10 Essential (primary) hypertension; F17.210 Nicotine dependence, cigarettes, uncomplicated
CPT/HCPCS: 36415; 80053; 85025; 86141

== ENCOUNTER 2022-01-13 12:38 | Emergency (ER) | payer MEDICAID ==
[~2022-01-13] VITALS: Ht 180.3 cm; Wt 89.4 kg
[2022-01-13 13:10] VITALS: BP 169/98
[2022-01-13] MEDS ORDERED: HYDR50CA PO (14:23)
[2022-01-13] MEDS ORDERED: PRED20TA2 PO (14:23)
[2022-01-13] MEDS ORDERED: LISI20TA28 PO (14:23)
[2022-01-13] MEDS ORDERED: PENI500T2 PO (14:23)
== END 2022-01-13 14:27 | disposition home or self-care (01) ==
LOC: ER 12:40
DX: L23.9 Allergic contact dermatitis, unspecified cause (principal); L01.00 Impetigo, unspecified; I10 Essential (primary) hypertension; F17.210 Nicotine dependence, cigarettes, uncomplicated; F15.10 Other stimulant abuse, uncomplicated; Z76.0 Encounter for issue of repeat prescription